=== PATIENT | female | born 1995 | race Caucasian/White ===

== ENCOUNTER 2024-03-02 21:00 | Emergency (ER) | payer OTHER ==
[2024-03-02] MEDS ORDERED: TRANEXAMIC ACID 1,000 MG/10 ML VIAL IV ONE (21:29)
[2024-03-02] MEDS ORDERED: OXYMETAZOLINE HCL 0.05% 15ML NAS ONE (21:29)
[2024-03-02] MEDS ORDERED: NA CHLORIDE 0.9% 100 ML ONE (21:33)
[2024-03-02 21:48] LABS: Absolute Basophils 0.1 K/uL (0-0.5); Absolute Eosinophils 0.2 K/uL (0-0.5); Absolute Lymphocytes (CBC) 2.5 K/uL (0.7-4.9); Absolute Monocytes 0.8 K/uL (0.1-1.3); Absolute Neutrophil 6.8 K/uL (1.8-8.0); Basophils % 0.6 % (0-1.3); Eosinophils % 1.6 % (0-4.4); Hematocrit 44.6 % (36.0-45.0); Hemoglobin 14.9 g/dL (12.0-15.0); Lymphocytes % 23.7 % (15.3-44.8); MCH 30.2 pg (27.0-35.0); MCHC 33.4 g/dL (32.0-36.0); MCV 90.4 fL (80-100); MPV 9.5 fL (7.6-11.3); Neutrophils % 66.1 % (41.7-73.7); Nucleated Red Blood Cells % 0.2 % (0-0); Platelets 297 thou/uL (152-406); RBC Red Blood Cell Count 4.94 M/uL (3.86-4.86); Red Cell Distribution Width 13.3 % (12.1-15.2)
[2024-03-02 21:55] LABS: PT Prothrombin Time 11.7 SECONDS (9.4-12.5); PTT, Activated Partial Thromb 33.1 SECONDS (24.3-36.9); Protime INR 1.05
[2024-03-02 22:06] LABS: Albumin 3.8 g/dL (3.4-5.0); Anion Gap 8.1 mEq/L (5.0-15.0); Bilirubin Total 0.3 mg/dL (0.2-1.0); Potassium 3.1 mEq/L (3.5-5.1); Protein, Total 7.8 g/dL (6.4-8.2)
[2024-03-02] MEDS ORDERED: ONDANSETRON 4 MG/2 ML VIAL ONE (22:54)
[2024-03-02] MEDS ORDERED: MORPHINE 4 MG/ML SYR ONE (22:55)
[2024-03-02] MEDS ORDERED: PROMETHAZINE INJ 25 MG/ML AMP ONE (23:05)
--- NOTE | 2024-03-03 00:01 | ER ---
Nurse's Notes [facility] Name: Dianne Mccord Age: 29 yrs Sex: Female : 1995 Arrival Date: 03/02/2024 Time: 21:00 Bed 4 Private MD: Diagnosis: Epistaxis Presentation: 03/02 21:17 Chief complaint: Patient states: had a procedure done to correct a deviated septum al5 about 3 weeks ago. had a nose bleed yesterday from 9:30-1:30 yesterday, stopped. today started bleeding at about 7 and has not stopped. Coronavirus screen: At this time, the client does not indicate any symptoms associated with coronavirus-19. Ebola Screen: No symptoms or risks identified at this time. Initial Sepsis Screen: Does the patient meet any 2 criteria? HR > 90 bpm. No. Patient's initial sepsis screen is negative. Does the patient have a suspected source of infection? No. Patient's initial sepsis screen is negative. Risk Assessment: Do you want to hurt yourself or someone else? Patient reports no desire to harm self or others. Onset of symptoms was March 02, 2024. 21:17 Method Of Arrival: Ambulatory al5 21:17 Acuity: ARUN 3 al5 Triage Assessment: 21:22 General: Appears in no apparent distress. uncomfortable, Behavior is calm, cooperative. al5 Pain: Denies pain. EENT: Nares with bleeding noted bilaterally profusely bleeding. Neuro: Level of Consciousness is awake, alert, obeys commands, Oriented to person, place, time, situation. Cardiovascular: Capillary refill < 3 seconds Patient's skin is warm and dry. Respiratory: Airway is patent Respiratory effort is even, unlabored, Respiratory pattern is regular, symmetrical. GI: No signs and/or symptoms were reported involving the gastrointestinal system. : No signs and/or symptoms were reported regarding the genitourinary system. Derm: Skin is intact, is healthy with good turgor, Skin is pink, warm \\T\\ dry. normal. Musculoskeletal: No signs and/or symptoms reported regarding the musculoskeletal system. MANAGER LONG TERM CARE: 03/03 00:10 Not cp4 Historical: - Allergies: 03/02 21:21 No Known Allergies; al5 - PMHx: 21:21 None; al5 - PSHx: 21:21 septoplasty; al5 - Immunization history:: Adult Immunizations up to date. - Infectious Disease History:: Denies. - Social history:: Smoking status: Patient denies any tobacco usage or history of. Screenin:[address] [facility] ED Fall Risk Assessment (Adult) History of falling in the last 3 months, al5 including since admission No falls in past 3 months (0 pts) Confusion or Disorientation No (0 pts) Intoxicated or Sedated No (0 pts) Impaired Gait No (0 pts) Mobility Assist Device Used No (0 pt) Altered Elimination No (0 pt) Score/Fall Risk Level 0 - 2 = Low Risk Oriented to surroundings, Maintained a safe environment, Hourly rounding (assess needs \\T\\ fall precautionary measures) done. Abuse screen: Denies threats or abuse. Denies injuries from another. Nutritional screening: No deficits noted. Tuberculosis screening: No symptoms or risk factors identified. Assessment: 21:23 Reassessment: see triage assessment. al5 Vital Signs: 21:17 BP 135 / 99; Pulse 120; Resp 18; Temp 98.3; Pulse Ox 100% on R/A; Weight 72.57 kg; al5 Height 5 ft. 5 in. ; Pain 0/10; 03/03 00:10 BP 136 / 77; Pulse 87; Resp 18; Pulse Ox 100% ; cp4 03/02 21:17 Body Mass Index 26.63 (72.57 kg, 165.1 cm) al5 03/02 21:17 Pain Scale: Adult al5 ED Course: 03/02 21:03 Patient arrived in ED. gm2 21:04 [facility]5 21:04 Akira Das MD is Attending Physician. dr5 21:17 Saira Chiang RN is Primary Nurse. al5 21:21 Triage completed. al5 21:23 Arm band placed on right wrist. Patient placed in the treatment room, on a stretcher, al5 on pulse oximetry. 21:24 Patient has correct armband on for positive identification. Bed in low position. Call al5 light in reach. Side rails up X 1. Provided Education on: plan of care. 21:27 Inserted saline lock: 20 gauge in right antecubital area, using aseptic technique. al5 Blood collected. 23:28 Assist provider with nosebleed control using Afrin sprays, nasal clamp, rhino rocket al5 placed for extensive packing needs, Bleeding from both nares. Set up for procedure. Performed by Giovanni OSMAN Bleeding decreased. Patient tolerated patient tolerated well on the L nare, R nare caused pain, but was able to successfully insert rhino rocket. pain has subsided once procedure was done. 03/03 00:10 intact, bleeding controlled, No redness/swelling at site. Pressure dressing applied. cp4 Administered Medications: 03/02 21:29 Drug: tranexamic acid 1 grams IV at per protocol Per protocol {Note: nasal by PRESTON Rodney.} Route: IV; Rate: per protocol; Site: Other; 21:49 Follow up: Response: No adverse reaction; IV Status: Completed infusion; IV Intake: al5 100ml 21:30 Drug: Oxymetazoline Intranasal Drops (0.05 %) 1 sprays Intranasal once Route: dd2 Intranasal; Site: both nares; 23:00 Drug: Ondansetron IVP 4 mg IVP once; over 2 minutes Route: IVP; Site: right antecubital;al5 23:27 Follow up: Response: No adverse reaction; Nausea is decreased al5 23:00 Drug: morphine IVP or IV 4 mg IVP once over 4 mins Route: IVP; Infused Over: 4 mins; al5 Site: right antecubital; 23:00 Follow up: Response: Other; made patient feel a "weird and uncomfortable" sensation, al5 wanted to discontinue medication administration. STOREROOM ATTENDANT at bedside and is aware. 23:11 Drug: Promethazine IVP 25 mg IVP once Route: IVP; Site: right antecubital; al5 23:27 Follow up: Response: No adverse reaction; Nausea is decreased al5 Medication: 21:23 VIS not applicable for this client. al5 Intake: 21:49 IV: 100ml; Total: 100ml. al5 Outcome: 03/03 00:00 Discharge ordered by . dr5 00:10 Discharged to home ambulatory, cp4 00:10 Condition: stable 00:10 Discharge instructions given to patient, Instructed on discharge instructions, follow up and referral plans. Demonstrated understanding of instructions, follow-up care, 00:11 Patient left the ED. cp4 Signatures: Kim Wright cp4 Rachael Gray gm2 Saira Chiang RN RN al5 SUNNY EDWARDS RN RN dd2 Giovanni Hart, PRESTON-C RECEIVING LEAD-Cdr5 Corrections: (The following items were deleted from the chart) 03/02 23:26 23:24 morphine IVP or IV 1 mg IVP in right antecubital over 4 mins al5 al5 23:26 23:24 Response: Other; made patient feel a "weird and uncomfortable" sensation, wanted al5 to discontinue medication administration. STOREROOM ATTENDANT at bedside and is aware. al5 : 23:25 Ondansetron IVP 4 mg IVP in right antecubital al5 al5 23:27 21:24 No provider procedures requiring assistance completed. al5 al5
--- NOTE | 2024-03-03 00:01 | EDPHYS ---
Physician Documentation [facility] Name: Dianne Mccord Age: 29 yrs Sex: Female : 1995 Arrival Date: 03/02/2024 Time: 21:00 Bed 4 Private MD: ED Physician Akira Das HPI: 03/03 00:03 This 29 yrs old Female presents to ER via Ambulatory with complaints of Nose dr5 Bleed, POST OP NOSE SURGERY. 00:03 The patient presents with a nose bleed, that is continuous with clots, causative dr5 factors include: Rhinoplasty 3 weeks ago. Onset: The symptoms/episode began/occurred 1900 on 03/02/24. Patient is a 29-year-old female presenting with bilateral epistaxis that started at 7 PM tonight. Patient had a rhinoplasty done in [place] by Dr. Yung Subramanian with no complications. I spoke with Dr. Subramanian regarding case. He states rhinoplasty was completed without complications and patient recovered well. He recommended attempting Afrin, TXA, and packing if needed.. ASBESTOS WIRE FINISHER: 00:10 Not cp4 Historical: - Allergies: 03/02 21:21 No Known Allergies; al5 - PMHx: 21:21 None; al5 - PSHx: 21:21 septoplasty; al5 - Immunization history:: Adult Immunizations up to date. - Infectious Disease History:: Denies. - Social history:: Smoking status: Patient denies any tobacco usage or history of. ROS: 03/03 00:03 Constitutional: as per hpi dr5 Exam: 00:03 Constitutional: This is a well developed, well nourished patient who is awake, alert, dr5 and in no acute distress. Head/Face: Normocephalic, atraumatic. Eyes: Pupils equal round and reactive to light, extra-ocular motions intact. Lids and lashes normal. Conjunctiva and sclera are non-icteric and not injected. Cornea within normal limits. Periorbital areas with no swelling, redness, or edema. Neck: Trachea midline, no thyromegaly or masses palpated, and no cervical lymphadenopathy. Supple, full range of motion without nuchal rigidity, or vertebral point tenderness. No Meningismus. Chest/axilla: Normal chest wall appearance and motion. Nontender with no deformity. No lesions are appreciated. Cardiovascular: Regular rate and rhythm with a normal S1 and S2. Normal PMI, no JVD. No pulse deficits. Respiratory: Lungs have equal breath sounds bilaterally, clear to auscultation. No rales, rhonchi or wheezes noted. No increased work of breathing, no retractions or nasal flaring. Back: No spinal tenderness. No costovertebral tenderness. Full range of motion. Skin: Warm, dry with normal turgor. Normal color with no rashes, no lesions, and no evidence of cellulitis. Neuro: Awake and alert, GCS 15, oriented to person, place, time, and situation. Cranial nerves II-XII grossly intact. Motor strength 5/5 in all extremities. Sensory grossly intact. Cerebellar exam normal. Normal gait. 00:03 ENT: Nose: External nose: swelling is noted, Nasal septum: deviates to the right, Nasal mucosa: Turbinates: are swollen on the right, bleeding, is noted from both nares, and is moderate, clotted blood, in right nare, Vital Signs: 03/02 21:17 BP 135 / 99; Pulse 120; Resp 18; Temp 98.3; Pulse Ox 100% on R/A; Weight 72.57 kg; al5 Height 5 ft. 5 in. ; Pain 0/10; 03/03 00:10 BP 136 / 77; Pulse 87; Resp 18; Pulse Ox 100% ; cp4 03/02 21:17 Body Mass Index 26.63 (72.57 kg, 165.1 cm) al5 03/02 21:17 Pain Scale: Adult al5 Procedures: 00:03 Epistaxis treatment: A moderate amount of bleeding noted from both nares. Treated using dr5 Oxymetazoline sprays, direct pressure, nasal clamp, rhino rocket, Bleeding stopped. MDM: 03/02 21:08 Medical Screening Exam initiated dr5 03/03 00:03 Differential diagnosis: sinusitis, epistaxis r/t trauma, spontaneous epistaxis. Data dr5 reviewed: vital signs, nurses notes, lab test result(s), CBC, white blood cell count, hemoglobin, hematocrit, platelets, reticulocyte count. Management of patient was discussed with the following: Enrobing Machine Operator: Discussed case with Dr. Subramanian. Chase was not available due to family emergency.. Historians other than the Patient: Family Member: Aunt. Care significantly affected by the following Social Determinants of Health: Poor access to healthcare and/or lack of insurance. Counseling: I had a detailed discussion with the patient and/or guardian regarding the historical points, exam findings, and any diagnostic results supporting the discharge/admit diagnosis, the presence of at least one elevated blood pressure reading (>120/80) during this emergency department visit, the need for outpatient follow up, for definitive care, an ENT specialist, to return to the emergency department if symptoms worsen or persist or if there are any questions or concerns that arise at home. ED course: 7.5 Rhino Rocket placed in left nare and 5.5 placed in right. Patient reports she will follow-up tomorrow back with Dr. Subramanian in [place]. Explained not to remove Rhino Rocket's until seen by ENT. Epistaxis bilaterally has resolved. Patient denies swallowing any more blood. Blood work discussed with patient and was unremarkable. Patient not anemic and blood clotting factors were normal.. 03/02 21:25 Order name: CBC with Diff; Complete Time: 22:09 dr5 03/02 21:25 Order name: CMP; Complete Time: 22: dr5 03/02 21:31 Order name: PT-INR; Complete Time: 22: dr5 03/02 21:31 Order name: Ptt, Activated; Complete Time: 22:09 dr5 Administered Medications: 03/02 21:29 Drug: tranexamic acid 1 grams IV at per protocol Per protocol {Note: nasal by PRESTON Rodney.} Route: IV; Rate: per protocol; Site: Other; 21:49 Follow up: Response: No adverse reaction; IV Status: Completed infusion; IV Intake: al5 100ml 21:30 Drug: Oxymetazoline Intranasal Drops (0.05 %) 1 sprays Intranasal once Route: dd2 Intranasal; Site: both nares; 23:00 Drug: Ondansetron IVP 4 mg IVP once; over 2 minutes Route: IVP; Site: right antecubital;al5 23:27 Follow up: Response: No adverse reaction; Nausea is decreased al5 23:00 Drug: morphine IVP or IV 4 mg IVP once over 4 mins Route: IVP; Infused Over: 4 mins; al5 Site: right antecubital; 23:00 Follow up: Response: Other; made patient feel a "weird and uncomfortable" sensation, al5 wanted to discontinue medication administration. SIGN PAINTER HELPER at bedside and is aware. 23:11 Drug: Promethazine IVP 25 mg IVP once Route: IVP; Site: right antecubital; al5 23:27 Follow up: Response: No adverse reaction; Nausea is decreased al5 Disposition: 03/03 04:55 Co-signature as Attending Physician, Akira Das MD I agree with the assessment sp4 and plan of care. I reviewed the patient's care provided by the Advanced Practice Provider and agree with the diagnosis and treatment plan. Disposition Summary: 03/03/24 00:00 Discharge Ordered Notes: Location: Home dr5 Condition: Stable dr5 Diagnosis - Epistaxis dr5 Followup: dr5 - With: Emergency Department - When: As needed - Reason: Worsening of condition Followup: dr5 - With: Private Physician - When: 1 - 2 days - Reason: Recheck today's complaints, Continuance of care, Re-evaluation by your physician Discharge Instructions: - Discharge Summary Sheet dr5 - Nosebleed, Adult dr5 Forms: - Medication Reconciliation Form dr5 - Patient Portal Instructions dr5 - Leadership Thank You Letter dr5 Signatures: Dispatcher [employer] Akira Bradley MD MD sp4 Saira Chiang RN RN al5 SUNNY EDWARDS RN RN dd2 Giovanni Hart, GYRO MECHANIC-C GYRO MECHANIC-Cdr5 Corrections: (The following items were deleted from the chart) 03/02 21:25 21:25 CBC+H.LAB.BRZ ordered. EDMS EDMS 21:25 21:25 COMPREHENSIVE METABOLIC PANEL+C.LAB.BRZ ordered. EDMS EDMS
[2024-03-03 00:22] VITALS: TEMP 98.3; O2SAT 100
[2024-03-03 00:28] VITALS: BP 136/77
== END 2024-03-03 00:11 | disposition home or self-care (01) ==
LOC: ER 21:00
PROC: 2Y41X5Z Packing of Nasal Region using Packing Material (ICD-10-PCS; principal; 2024-03-03)
DX: R04.0 Epistaxis (principal); Z98.890 Other specified postprocedural states
CPT/HCPCS: 96365; 30901 ×3; 85025; 36415; 85610; 85730; 80053; 96375; 99284; J2550; J2405